=== PATIENT | female | born 1955 | race Caucasian/White ===

== ENCOUNTER → 2016-09-23 | Outpatient (CLI) | payer OTHER | LOC: WI 08:41 | PROVIDERS: ATTEND Internal Medicine | DX: Z12.31 Encounter for screening mammogram for malignant neoplasm of breast (principal); R92.0 Mammographic microcalcification found on diagnostic imaging of breast | CPT/HCPCS: 77063; G0202; 77067 ==

== ENCOUNTER → 2016-09-29 | Outpatient (CLI) | payer OTHER | LOC: WI 10:05 | PROVIDERS: ATTEND Internal Medicine | DX: R92.2 Inconclusive mammogram (principal) | CPT/HCPCS: G0204-52 ==

== ENCOUNTER → 2016-10-09 | Day surgery (SDC) | payer OTHER ==
[~2016-10-09] MED LIST: LIDOCAINE 1%/EPINEPHRINE INJ 20 ML VIAL ONE
== END ==
LOC: RAD 08:57
PROVIDERS: ATTEND Internal Medicine
PROC: 0HBU3ZX Excision of Left Breast, Percutaneous Approach, Diagnostic (ICD-10-PCS; principal; 2016-10-09)
DX: N60.21 Fibroadenosis of right breast (principal); R92.0 Mammographic microcalcification found on diagnostic imaging of breast; E03.9 Hypothyroidism, unspecified; I10 Essential (primary) hypertension; E78.5 Hyperlipidemia, unspecified; G40.909 Epilepsy, unspecified, not intractable, without status epilepticus; Z88.5 Allergy status to narcotic agent; Z87.820 Personal history of traumatic brain injury
CPT/HCPCS: 88342 ×2; 88341 ×2; 88305 ×2; 19081; J3490

== ENCOUNTER 2016-11-06 16:50 | Emergency (ER) | payer OTHER ==
[2016-11-06] MEDS ORDERED: CYCLOBENZAPRINE HCL 10 MG TABLET PO ONE (17:49)
[2016-11-06] MEDS ORDERED: OXYCODONE-ACETAMINOPHEN 5-325 MG TABLET PO ONE (17:49)
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
[2016-11-06 18:19] VITALS: BP 154/96
== END 2016-11-06 18:18 | disposition home or self-care (01) ==
LOC: ER 16:50
DX: M54.5 Low back pain (principal); V43.52XA Car driver injured in collision with other type car in traffic accident, initial encounter; I10 Essential (primary) hypertension; Z88.5 Allergy status to narcotic agent; Z87.891 Personal history of nicotine dependence; Z85.3 Personal history of malignant neoplasm of breast
CPT/HCPCS: 99283

== ENCOUNTER → 2017-09-24 | Outpatient (CLI) | payer OTHER ==
--- NOTE | 2017-09-25 09:07 | WOMENS IMAGING REPORT ---
EXAM DESCRIPTION: 3D SCREENING MAMMO BILAT COMPLETED DATE/TIME: 09/24/2017 12:55 pm REASON FOR STUDY: SCREENING MAMMO Z12.31 ENCNTR SCREEN MAMMOGRAM FOR MALIGNANT NEOPLASM OF LIZ COMPARISON: 2012 to 2016 TECHNIQUE: Standard craniocaudal and mediolateral oblique views of each breast recorded using digita l acquisition and breast tomosynthesis. LIMITATIONS: None. FINDINGS: No masses, calcifications or architectural distortion. No areas of suspicion. Read with the assistance of CAD. .[facility] - R2 Cenova Version 1.3 .[facility] - R2 Cenova Version 1.3 .[facility] - R2 Cenova Version 2.4 .[facility] [place] [place] - R2 Cenova Version 2.4 .[facility] - R2 [employer] Version 9.2 IMPRESSION: NORMAL MAMMOGRAM. BIRADS 1. BREAST DENSITY: b. There are scattered areas of fibroglandular density. BIRAD: 1 NEGATIVE RECOMMENDATION: ROUTINE SCREENING COMMENT: The patient has been notified of the results by letter per SA requirements. Additional no tification policies are in place for contacting patient with suspicious or incomplete findings. Quality ID #[id number]: The [employer] recommends an annual screening mammogram for women aged 40 years or over. This facility utilizes a reminder system to ensure that all patients receive reminder letters, and/or direct phone calls for appointments. This includes reminders for routine scr eening mammograms, diagnostic mammograms, or other Breast Imaging Interventions when appropriate. Th is patient will be placed in the appropriate reminder system. The [employer] (ACR) has developed recommendations for screening MRI of the breast s in certain patient populations, to be used in conjunction with mammography. Breast MRI surveillanc e may be appropriate for women with more than 20% lifetime risk of developing breast cancer as deter mined by genetic testing, significant family history of the disease, or history of mantle radiation f or Hodgkins Disease. ACR Practice Guidelines 2008. DBT Technology DBT is a type of tomographic mammography. With conventional mammography, overlapping breast tissue ma y make lesions difficult to detect, even with good compression. DBT uses an x-ray tube that rotates a round the breast, taking images at different angles. These images are then combined to create thin sl ices of the breast that the radiologist can view as a 3D reconstruction. The Noah unit can perform full-field digital mammograms (2D imaging); or DBT (3D imaging); or both, in a combination mode that quickly performs both the mammogram and the tomosynthesis scan while the breast is still compressed. PQRS 6045F: Fluoroscopic imaging is not utilized for breast tomosynthesis. TECHNICAL DOCUMENTATION: FINDING NUMBER: (1) ASSESSMENT: (1) JOB ID: [id number] [employer]- All Rights Reserved Reading location - IP/workstation name: [email or web address]
== END ==
LOC: WI 12:35
PROVIDERS: ATTEND Internal Medicine
DX: Z12.31 Encounter for screening mammogram for malignant neoplasm of breast (principal)
CPT/HCPCS: 77063; 77067

== ENCOUNTER 2017-12-01 21:59 | Inpatient (IN) | payer OTHER ==
[2017-12-02] MEDS ORDERED: AMPICILLIN SOD/SULBACTAM 3 GM VIAL IV ONE (00:53)
--- NOTE | 2017-12-02 01:02 | ER Document Report ---
ED Extremity Problem, Upper - General Chief Complaint: Hand Swelling Stated Complaint: POSSIBLE CAT SCRATCH Time Seen by Provider: 12/02/17 00:23 Notes: Patient is a 62-year-old female who comes in complaining of redness and swelling to her left upper extremity. Patient is right-handed. Patient was trying to introduce her cat to a dog. The cat became upset and bit and scratched the patient. Patient was seen at urgent care where x-rays were done on her bilateral arms with no evidence of foreign body. Patient was given a dose of Rocephin and also started on Augmentin. Despite 3 doses of Augmentin, the patient is having streaking redness of her left upper extremity. She has a history of hypertension, high cholesterol, prediabetic, and hypothyroidism. Denies any other injuries anywhere else. Cat is up-to-date on vaccinations. Patient was given tetanus when she was seen in urgent care. TRAVEL OUTSIDE OF THE [place] IN LAST 30 DAYS: No - HPI Patient complains to provider of: Pain, Swelling Onset: Other Context: Animal bite - Related Data Allergies/Adverse Reactions: acetaminophen [From Vicodin] Allergy (Severe, Verified 11/06/16 17:10) rash hydrocodone bitartrate [From Vicodin] Allergy (Verified 11/06/16 17:10) Past Medical History - Social History Smoking Status: Unknown if Ever Smoked Family History: Arthritis, CAD, CVA, DM, Hyperlipidemia, Hypertension, Malignancy, Thyroid Disfunction Patient has suicidal ideation: No Patient has homicidal ideation: No - Past Medical History Cardiac Medical History: Reports: Hx Hypercholesterolemia, Hx Hypertension - on meds Denies: Hx Coronary Artery Disease, Hx Heart Attack Pulmonary Medical History: Reports: Hx Pneumonia - hx of Denies: Hx Asthma, Hx Bronchitis, Hx COPD Neurological Medical History: Reports: Hx Seizures - 2010 r/t thyroid//no meds. Denies: Hx Cerebrovascular Accident Endocrine Medical History: Reports: Hx Hypothyroidism Renal/ Medical History: Denies: Hx Peritoneal Dialysis Malignancy Medical History: Reports: Hx Breast Cancer - left Ductal hyperplasia Musculoskeltal Medical History: Reports Hx Arthritis - mild, Reports Hx Musculoskeletal Trauma Psychiatric Medical History: Reports: Hx Anxiety, Hx Dementia Traumatic Medical History: Reports: Hx Traumatic Brain Injury Past Surgical History: Reports: Hx Breast Surgery - Lefttumor removed - Immunizations Immunizations up to date: Yes Hx Diphtheria, Pertussis, Tetanus Vaccination: Yes Hx Pneumococcal Vaccination: 03/31/04 Review of Systems - Review of Systems Constitutional: No symptoms reported EENT: No symptoms reported Cardiovascular: No symptoms reported Respiratory: No symptoms reported Gastrointestinal: No symptoms reported Genitourinary: No symptoms reported Female Genitourinary: No symptoms reported Musculoskeletal: See HPI Skin: See HPI Hematologic/Lymphatic: No symptoms reported Neurological/Psychological: No symptoms reported Physical Exam - Vital signs Vitals: Temp Pulse Resp BP Pulse Ox 97.9 F 104 H 20 139/79 H 93 12/01/17 22:59 12/01/17 22:59 12/01/17 22:59 12/01/17 22:59 12/01/17 22:59 Interpretation: Normal - General General appearance: Appears well, Alert - HEENT Head: Normocephalic, Atraumatic Eyes: Normal Pupils: PERRL - Respiratory Respiratory status: No respiratory distress Chest status: Nontender Breath sounds: Normal Chest palpation: Normal - Cardiovascular Rhythm: Regular Heart sounds: Normal auscultation Murmur: No - Abdominal Inspection: Normal Distension: No distension Bowel sounds: Normal Tenderness: Nontender Organomegaly: No organomegaly - Back Back: Normal, Nontender - Extremities General upper extremity: Normal inspection, Tender, Edema, Normal ROM, Normal temperature. No: Normal color General lower extremity: Normal inspection, Nontender, Normal color, Normal ROM , Normal temperature, Normal weight bearing. No: Sammy's sign Shoulder: Normal Arm: Normal Elbow: Normal Forearm: Other - Patient with streaking erythema from her left wrist onto her dorsal hand and to her mid forearm. Area has been marked. Hip: Normal Thigh: Normal Knee: Normal Calf: Normal Ankle: Normal Foot: Normal - Neurological Neuro grossly intact: Yes Cognition: Normal Orientation: AAOx4 Jann Coma Scale Eye Opening: Spontaneous Jann Coma Scale Verbal: Oriented [place] Coma Scale Motor: Obeys Commands Jann Coma Scale Total: 15 Speech: Normal Motor strength normal: LUE, RUE, LLE, RLE Sensory: Normal - Psychological Associated symptoms: Normal affect, Normal mood - Skin Skin Temperature: Warm Skin Moisture: Dry Skin Color: Normal Skin irregularity: Erythema - Left upper extremity from hand to mid forearm Course - Re-evaluation Re-evalutation: Patient is a 62-year-old female who was bitten and scratched by her cat recently. Despite Augmentin, the patient is having increasing erythema and edema of her left upper extremity. She will be started on Unasyn and admitted for further evaluation and management of cellulitis. Tetanus was updated in urgent care. No palpable lymph nodes or lymph node tenderness to palpation. Unlikely cat scratch fever. Patient will be admitted to the hospitalist service. Agrees with this plan. Stable time of admission. - Vital Signs Vital signs: Temp Pulse Resp BP Pulse Ox 97.9 F 104 H 20 139/79 H 93 12/01/17 22:59 12/01/17 22:59 12/01/17 22:59 12/01/17 22:59 12/01/17 22:59 - Laboratory Result Diagrams: 12/02/17 02:15 12/02/17 02:15 Discharge - Discharge Clinical Impression: Cellulitis of left upper extremity Condition: Stable Disposition: ADMITTED OBSERVATION Admitting Provider: Hospitalist - [facility] Unit Admitted: Medical Floor
[2017-12-02] MEDS ORDERED: ONDANSETRON HCL INJ/PF 4 MG/2 ML SDV IV PRN (01:11)
--- NOTE | 2017-12-02 01:26 | PDOC H&P ---
History of Present Illness Admission Date/PCP: 12/02/17 01:13 MICKEY JANE MD History of Present Illness: ROBSON JOSEPH is a 62 year old female patient with past medical history of hypertension, hyperlipidemia, diabetes mellitus, hypothyroidism and anxiety disorder presents with chief complaint of left arm swelling, pain, tenderness and erythema. About 3 days ago patient was bit by her cut, same patient started to develop the above-mentioned complaints. Patient's first visit to urgent care where she was given tetanus and Augmentin. Despite taking the Augmentin and patient's conditions get worse so come to ER for help. Patient denies fever, cough, chest pain, palpitation or diaphoresis. No urinary complaints or GI complaints. No headache dizziness or blurry vision. Past Medical History Cardiac Medical History: Reports: Hyperlipidema, Hypertension - on meds Denies: Coronary Artery Disease, Myocardial Infarction Pulmonary Medical History: Reports: Pneumonia - hx of Denies: Asthma, Bronchitis, Chronic Obstructive Pulmonary Disease (COPD) Neurological Medical History: Reports: Seizures - 2010 r/t thyroid//no meds Endocrine Medical History: Reports: Hypothyroidism Malignancy Medical History: Reports: Breast Cancer - left Ductal hyperplasia Musculoskeltal Medical History: Reports: Arthritis - mild Psychiatric Medical History: Reports: Dementia Traumatic Medical History: Reports: Traumatic Brain Injury Hematology: Denies: Anemia Past Surgical History Past Surgical History: Reports: Other - Lumpectomy Social History Smoking Status: Never Smoker Frequency of Alcohol Use: None Hx Recreational Drug Use: No Drugs: None - Advance Directive Resuscitation Status: Full Code Family History Family History: Arthritis, CAD, CVA, DM, Hyperlipidemia, Hypertension, Malignancy, Thyroid Disfunction Parental Family History Reviewed: Yes Children Family History Reviewed: Yes Sibling(s) Family History Reviewed.: Yes Medication/Allergy Home Medications: Alprazolam [Xanax 0.25 mg Tablet] 06/27/13 Atorvastatin Calcium [Lipitor 40 mg Tablet] 06/27/13 Ergocalciferol (Vitamin D2) [Vitamin D2] 2,000 unit PO 06/27/13 Levothyroxine Sodium 50 mcg PO 06/27/13 Losartan/Hydrochlorothiazide [Hyzaar 50-12.5 Tablet] 1 each PO 06/27/13 [place]-3 Fatty Acids/Fish Oil [Fish Oil 1,000 mg Capsule] 06/27/13 Oxycodone HCl/Acetaminophen [Percocet 5-325 mg Tablet] 06/27/13 Paroxetine HCl [Paxil] 10 mg PO 06/27/13 Pravastatin Sodium [Pravachol] 10 mg PO 06/27/13 Vitamin B Complex 1 each PO 06/27/13 Ondansetron [Zofran Odt 4 mg Tablet] 1 - 2 tab PO Q4H #10 tab.rapdis 09/12/13 Oxycodone HCl/Acetaminophen [Percocet 5-325 mg Tablet] 1 - 2 tab PO ASDIR PRN # 25 tablet 09/12/13 Methocarbamol [Robaxin 500 mg Tablet] 500 mg PO TID #14 tablet 07/06/15 Oxycodone HCl/Acetaminophen [Percocet 5-325 mg Tablet] 1 tab PO Q6HP PRN #10 tablet 07/06/15 Butalb/Acetaminophen/Caffeine [Fioricet (50-325-40 mg) Tablet] 1 - 2 tab PO Q4H PRN #30 each 07/25/15 Methocarbamol 500 mg PO QIDP PRN #30 tablet 07/25/15 Cyclobenzaprine HCl [Flexeril 10 mg Tablet] 10 mg PO TIDP PRN #15 tab 11/06/16 Oxycodone HCl/Acetaminophen [Percocet 5-325 mg Tablet] 1 tab PO Q6HP PRN #7 tablet 11/06/16 Allergies/Adverse Reactions: acetaminophen [From Vicodin] Allergy (Severe, Verified 11/06/16 17:10) rash hydrocodone bitartrate [From Vicodin] Allergy (Verified 11/06/16 17:10) Review of Systems Constitutional: PRESENT: as per HPI Eyes: PRESENT: as per HPI Ears: PRESENT: as per HPI Cardiovascular: PRESENT: as per HPI Respiratory: PRESENT: as per HPI Gastrointestinal: PRESENT: as per HPI Integumentary: PRESENT: as per HPI Psychiatric: PRESENT: anxiety Physical Exam Vital Signs: Temp Pulse Resp BP Pulse Ox 97.9 F 104 H 20 139/79 H 93 12/01/17 22:59 12/01/17 22:59 12/01/17 22:59 12/01/17 22:59 12/01/17 22:59 General appearance: PRESENT: no acute distress, well-developed, well-nourished Head exam: PRESENT: atraumatic, normocephalic Ear exam: PRESENT: normal external ear exam Neck exam: ABSENT: carotid bruit, JVD, lymphadenopathy, thyromegaly Respiratory exam: PRESENT: clear to auscultation leonel. ABSENT: rales, rhonchi, wheezes Cardiovascular exam: PRESENT: RRR. ABSENT: diastolic murmur, rubs, systolic murmur GI/Abdominal exam: PRESENT: normal bowel sounds, soft. ABSENT: distended, guarding, mass, organolmegaly, rebound, tenderness Extremities exam: PRESENT: tenderness - Tender erythematous swelling of the left arm, other Assessment & Plan - Diagnosis (1) Cellulitis of arm, left Is this a current diagnosis for this admission?: Yes Plan: Patient has been started on Unasyn. (2) Hypertension Qualifiers: Hypertension type: essential hypertension Qualified Code(s): I10 - Essential (primary) hypertension Is this a current diagnosis for this admission?: Yes Plan: Continue home medication (3) Hyperlipidemia Qualifiers: Hyperlipidemia type: unspecified Qualified Code(s): E78.5 - Hyperlipidemia , unspecified Is this a current diagnosis for this admission?: Yes Plan: Continue home medication (4) Type 2 diabetes mellitus Is this a current diagnosis for this admission?: Yes Plan: Put her on sliding scale (5) Hypothyroidism (acquired) Is this a current diagnosis for this admission?: Yes Plan: Continue home Synthroid. - Time Time Spent: 30 to 50 Minutes - Inpatient Certification Medical Necessity: Need for IV Antibiotics
[2017-12-02] MEDS ORDERED: DEXTROSE 50%-WATER 25 GM/50 ML DISP.SYRIN IV PRN ×2 (01:27)
[2017-12-02] MEDS ORDERED: GLUCAGON,HUMAN RECOMB 1 MG INJ IM PRN (01:27)
[2017-12-02] MEDS ORDERED: INSULIN LISPRO 100 UNIT/ML 3 ML VIAL SUBCUT PRN (01:27)
[2017-12-02] MEDS ORDERED: DEXTROSE 40% GEL 15 GM TUBE PO PRN ×2 (01:27)
[2017-12-02] MEDS ORDERED: AMPICILLIN SOD/SULBACTAM 3 GM VIAL IV PRN (02:13)
[2017-12-02 02:35] LABS: ABSOLUTE BASOPHILS # (AUTO) 0.3 10^3/uL (0.0-0.2); ABSOLUTE EOSINOPHILS # (AUTO) 0.3 10^3/uL (0.0-0.6); ABSOLUTE LYMPHOCYTES (AUTO) 4.2 10^3/uL (0.5-4.7); ABSOLUTE MONOCYTES (AUTO) 0.9 10^3/uL (0.1-1.4); ABSOLUTE NEUT (AUTO) 11.6 10^3/uL (1.7-8.2); BASOPHILS % (AUTO) 1.6 % (0-2); EOSINOPHILS % (AUTO) 1.8 % (0-6); HEMATOCRIT 34.9 % (36.0-47.0); HEMOGLOBIN 12.1 g/dL (12.0-15.5); LYMPHOCYTES % (AUTO) 24.3 % (13-45); MEAN CORPUSCULAR HEMOGLOBIN 29.1 pg (27.0-33.4); MEAN CORPUSCULAR HGB CONC 34.7 g/dL (32.0-36.0); MEAN CORPUSCULAR VOLUME 84 fl (80-97); MONOCYTES % (AUTO) 5.5 % (3-13); PLATELET COUNT 325 10^3/uL (150-450); RED BLOOD COUNT 4.16 10^6/uL (3.72-5.28); RED CELL DISTRIBUTION WIDTH 13.1 % (11.5-14.0); SEGMENTED NEUTROPHILS % (AUTO) 66.8 % (42-78); TOTAL CELLS COUNTED % (AUTO) 100 %; WHITE BLOOD COUNT 17.3 10^3/uL (4.0-10.5)
[2017-12-02 03:14] LABS: ALANINE AMINOTRANSFERASE 22 U/L (9-52); ALBUMIN 3.5 g/dL (3.5-5.0); ALKALINE PHOSPHATASE 72 U/L (38-126); ANION GAP 11 (5-19); ASPARTATE AMINO TRANSFERASE 15 U/L (14-36); BILIRUBIN,DIRECT 0.3 mg/dL (0.0-0.4); BILIRUBIN,TOTAL 0.6 mg/dL (0.2-1.3); BLOOD UREA NITROGEN 11 mg/dL (7-20); CALCIUM 9.1 mg/dL (8.4-10.2); CARBON DIOXIDE 32 mmol/L (22-30); CHLORIDE 100 mmol/L (98-107); GLUCOSE 95 mg/dL (75-110); POTASSIUM 3.1 mmol/L (3.6-5.0); SODIUM 142.9 mmol/L (137-145); TOTAL PROTEIN 6.2 g/dL (6.3-8.2)
[2017-12-02] MEDS: AMPICILLIN SODIUM/SULBACTAM NA 3 GM in NORMAL SALINE 100 ML IV SCH ×3 (06:33→18:08)
[2017-12-02] MEDS: LEVOTHYROXINE SODIUM 0.05 MG TABLET PO SCH (06:33)
[2017-12-02] MEDS: FAMOTIDINE 20 MG TABLET PO SCH ×2 (10:31→22:57)
[2017-12-02] MEDS: ENOXAPARIN SODIUM INJ 40 MG/0.4 ML DISP.SYRIN SUBCUT SCH (10:31)
[2017-12-03] MEDS: LEVOTHYROXINE SODIUM 0.05 MG TABLET PO SCH (05:46)
[2017-12-03] MEDS: AMPICILLIN SODIUM/SULBACTAM NA 3 GM in NORMAL SALINE 100 ML IV SCH ×5 (05:49→18:28)
[2017-12-03 06:31] LABS: ABSOLUTE BASOPHILS # (AUTO) 0.1 10^3/uL (0.0-0.2); ABSOLUTE EOSINOPHILS # (AUTO) 0.4 10^3/uL (0.0-0.6); ABSOLUTE LYMPHOCYTES (AUTO) 3.4 10^3/uL (0.5-4.7); ABSOLUTE MONOCYTES (AUTO) 0.7 10^3/uL (0.1-1.4); ABSOLUTE NEUT (AUTO) 6.1 10^3/uL (1.7-8.2); BASOPHILS % (AUTO) 0.8 % (0-2); EOSINOPHILS % (AUTO) 3.5 % (0-6); HEMATOCRIT 33.6 % (36.0-47.0); HEMOGLOBIN 11.8 g/dL (12.0-15.5); LYMPHOCYTES % (AUTO) 31.7 % (13-45); MEAN CORPUSCULAR HEMOGLOBIN 29.5 pg (27.0-33.4); MEAN CORPUSCULAR VOLUME 84 fl (80-97); MONOCYTES % (AUTO) 6.4 % (3-13); PLATELET COUNT 315 10^3/uL (150-450); RED BLOOD COUNT 3.99 10^6/uL (3.72-5.28); RED CELL DISTRIBUTION WIDTH 13.1 % (11.5-14.0); SEGMENTED NEUTROPHILS % (AUTO) 57.6 % (42-78); TOTAL CELLS COUNTED % (AUTO) 100 %; WHITE BLOOD COUNT 10.7 10^3/uL (4.0-10.5)
[2017-12-03 06:49] LABS: ANION GAP 9 (5-19); BLOOD UREA NITROGEN 10 mg/dL (7-20); CALCIUM 8.8 mg/dL (8.4-10.2); CARBON DIOXIDE 34 mmol/L (22-30); CHLORIDE 104 mmol/L (98-107); GLUCOSE 105 mg/dL (75-110); POTASSIUM 3.9 mmol/L (3.6-5.0)
[2017-12-03] MEDS: ENOXAPARIN SODIUM INJ 40 MG/0.4 ML DISP.SYRIN SUBCUT SCH (09:32)
[2017-12-03] MEDS: FAMOTIDINE 20 MG TABLET PO SCH ×2 (09:32→21:56)
--- NOTE | 2017-12-03 19:05 | PDOC PROGRESS REPORT ---
Subjective Progress Note for:: 12/03/17 Subjective:: ROBSON SOMMER is a 62 y.o. female with PMH of hypertension, hyperlipidemia, diabetes mellitus, hypothyroidism and anxiety disorder. She presented 12/02/2017 with chief complaint of left arm swelling, pain, tenderness and erythema. She reports about 3 days ago she was bit by her cat. The patient started to develop the above-mentioned complaints and first went to urgent care where she was given tetanus and Augmentin. The patient states that the swelling and erythema continued to get worse despite treatment. Patient seen this morning on rounds, the swelling in her L hand and wrist has decreased significantly. Very mild erythema. The patient still having difficulty with fine motor movement in L hand due to swelling. Denies fever or chills. Patient is nontoxic appearing. Reason For Visit: CELLULITIS OF LEFT ARM, FAILED OUTPATIENT TREATMEN Physical Exam Vital Signs: Temp Pulse Resp BP Pulse Ox 98.0 F 77 17 118/71 98 12/03/17 08:29 12/03/17 08:29 12/03/17 08:29 12/03/17 08:29 12/03/17 08:29 Intake & Output 12/02/17 12/03/17 12/04/17 06:59 06:59 06:59 Weight 85 kg General appearance: PRESENT: no acute distress Eye exam: PRESENT: conjunctiva pink, PERRLA Mouth exam: PRESENT: moist Neck exam: PRESENT: full ROM Respiratory exam: PRESENT: symmetrical, unlabored Cardiovascular exam: PRESENT: +S1, +S2 Pulses: PRESENT: normal radial pulses GI/Abdominal exam: PRESENT: normal bowel sounds, soft. ABSENT: tenderness Rectal exam: PRESENT: deferred Extremities exam: PRESENT: full ROM Musculoskeletal exam: PRESENT: ambulatory, full ROM Neurological exam: PRESENT: alert, awake, oriented to person, oriented to place , oriented to time, oriented to situation Skin exam: PRESENT: dry, warm, other - animal bite to dorsal aspect of L arm and L wrist Results Laboratory Results: 12/03/17 06:04 12/03/17 06:04 12/03/17 12/03/17 12/03/17 06:04 06:04 06:04 WBC 10.7 H RBC 3.99 Hgb 11.8 L Hct 33.6 L MCV 84 MCH 29.5 MCHC 35.0 RDW 13.1 Plt Count 315 Seg Neutrophils % 57.6 Lymphocytes % 31.7 Monocytes % 6.4 Eosinophils % 3.5 Basophils % 0.8 Absolute Neutrophils 6.1 Absolute Lymphocytes 3.4 Absolute Monocytes 0.7 Absolute Eosinophils 0.4 Absolute Basophils 0.1 Sodium 147.0 H Potassium 3.9 Chloride 104 Carbon Dioxide 34 H Anion Gap 9 BUN 10 Creatinine 0.57 Est GFR ( Amer) > 60 Est GFR (Non-Af Amer) > 60 Glucose 105 Calcium 8.8 TSH 1.87 Status: Imported from PACS Assessment & Plan - Diagnosis (1) Cellulitis of arm, left Is this a current diagnosis for this admission?: Yes Plan: Secondary to cat bite Failed p.o. Augmentin treatment Left forearm, wrist, hand and 5 fingers look much better today, swelling has greatly decreased. Blood cultures pending. Continue IV Unasyn. Plan for discharge home tomorrow on p.o. antibiotics (2) Hypertension Qualifiers: Hypertension type: essential hypertension Qualified Code(s): I10 - Essential (primary) hypertension Is this a current diagnosis for this admission?: Yes Plan: Patient endorses history of hypertension. She has remained normotensive while inpatient at [facility] (3) Type 2 diabetes mellitus Is this a current diagnosis for this admission?: Yes Plan: Patient endorses history of diabetes. Accu-Cheks before meals at bedtime Humalog sliding scale insulin - Time Time Spent with patient: 15-24 minutes Medications reviewed and adjusted accordingly: Yes Anticipated discharge: Home Within: within 24 hours - Inpatient Certification Based on my medical assessment, after consideration of the patient's comorbidities, presenting symptoms, or acuity I expect that the services needed warrant INPATIENT care.: Yes I certify that my determination is in accordance with my understanding of Medicare's requirements for reasonable and necessary INPATIENT services [42 CFR 412.3e].: Yes Medical Necessity: Need for IV Antibiotics
[2017-12-04] MEDS: AMPICILLIN SODIUM/SULBACTAM NA 3 GM in NORMAL SALINE 100 ML IV SCH ×4 (05:20→12:48)
[2017-12-04] MEDS: LEVOTHYROXINE SODIUM 0.05 MG TABLET PO SCH (05:20)
[2017-12-04] MEDS ORDERED: IBUPROFEN 800 MG TABLET PO PRN (09:08)
[2017-12-04] MEDS: ENOXAPARIN SODIUM INJ 40 MG/0.4 ML DISP.SYRIN SUBCUT SCH (09:36)
[2017-12-04] MEDS: FAMOTIDINE 20 MG TABLET PO SCH (09:36)
[2017-12-04] MEDS ORDERED: CLINDAMYCIN HCL 150 MG CAPSULE PO SCH ×2 (14:00→18:00)
[2017-12-04 15:28] VITALS: BP 124/67
[2017-12-04] MEDS ORDERED: CLINDAMYCIN HCL 150 MG CAPSULE PO ONE (15:45)
[2017-12-04] MEDS ORDERED: DOXYCYCLINE HYCLATE 100 MG TABLET PO ONE (16:00)
[2017-12-04] MEDS ORDERED: DOXYCYCLINE HYCLATE 100 MG TABLET PO SCH (18:00)
--- NOTE | 2017-12-05 06:40 | PDOC DISCHARGE SUMMARY ---
General - Admit/Disc Date/PCP Admission Date/Primary Care Provider: 12/02/17 01:13 MICKEY JANE MD Discharge Date: 12/04/17 - Discharge Diagnosis (1) Cellulitis of arm, left Is this a current diagnosis for this admission?: Yes (2) Hypertension Is this a current diagnosis for this admission?: Yes (3) Type 2 diabetes mellitus Is this a current diagnosis for this admission?: Yes - Additional Information Resuscitation Status: Full Code Discharge Diet: As Tolerated Discharge Activity: Activity As Tolerated Prescriptions: Doxycycline Hyclate [Vibramycin 100 mg Tablet] 100 mg PO Q12 #28 tablet Ibuprofen [Motrin 800 mg Tablet] 800 mg PO Q6HP PRN #30 tablet PRN Reason: Home Medications: Alprazolam [Xanax 0.25 mg Tablet] 0.5 mg PO TID 06/27/13 Atorvastatin Calcium [Lipitor 40 mg Tablet] 40 mg PO QPM 06/27/13 Levothyroxine Sodium 50 mcg PO DAILY 06/27/13 Buspirone HCl [Buspar 10 mg Tablet] 10 mg PO BID 12/02/17 Cholecalciferol (Vitamin D3) [Vitamin D3 1000 Unit Tablet] 1,000 unit PO DAILY 12/02/17 Losartan/Hydrochlorothiazide [Losartan-Hctz 100-25 mg Tab] 1 tab PO DAILY Metformin HCl [Glucophage 500 mg Tablet] 500 mg PO BID 12/02/17 Tamoxifen Citrate 20 mg PO DAILY 12/02/17 Venlafaxine HCl [Effexor Xr] 150 mg PO BID 12/02/17 Doxycycline Hyclate [Vibramycin 100 mg Tablet] 100 mg PO Q12 #28 tablet Ibuprofen [Motrin 800 mg Tablet] 800 mg PO Q6HP PRN #30 tablet 12/04/17 History of Present Illness Patient complains of: cat bite. hand swelling History of Present Illness: ROBSON JOSEPH is a 62 year old female patient with past medical history of hypertension, hyperlipidemia, diabetes mellitus, hypothyroidism and anxiety disorder presents with chief complaint of left arm swelling, pain, tenderness and erythema. About 3 days ago patient was bit by her cut, same patient started to develop the above-mentioned complaints. Patient's first visit to urgent care where she was given tetanus and Augmentin. Despite taking the Augmentin and patient's conditions get worse so come to ER for help. Patient denies fever, cough, chest pain, palpitation or diaphoresis. No urinary complaints or GI complaints. No headache dizziness or blurry vision. Hospital Course Hospital Course: 62-year-old female admitted to [facility] for cellulitis of the left hand wrist and forearm secondary to a cat bite. Patient was originally seen at an urgent care and offered p.o. Augmentin for treatment, however her symptoms of swelling and pain continued to get worse. Admitted to [facility] hospitalist service for IV antibiotic therapy. Admitted to medical unit, initiated IV Unasyn. Initial WBC 17.1. Over the course of 48 hours her symptoms have greatly resolved. Erythema and edema of the dorsal aspect of the left hand and wrist significantly decreased, a small area of erythema remained around the puncture site. The patient remained afebrile and nontoxic throughout her hospital stay. Blood cultures negative. Leukocytosis resolved. After 2 days in the hospital, the patient was successfully discharged. She was sent home with prescriptions for doxycycline and clindamycin, both of which she was instructed to take for 14 days. The patient was offered information regarding local primary care physicians as she reports she typically goes to her [facility] for all of her medical care. The patient was given instructions to keep her wound clean and dry. The remainder of her discharge instructions were thoroughly explained, the patient stated full understanding. Physical Exam Vital Signs: Temp Pulse Resp BP Pulse Ox 97.6 F 78 18 124/67 98 12/04/17 15:26 12/04/17 15:26 12/04/17 15:26 12/04/17 15:26 12/04/17 15:26 Intake & Output 12/03/17 12/04/17 12/05/17 06:59 06:59 06:59 Intake Total 900 700 Balance 900 700 Weight 85 kg 86.5 kg Results Laboratory Results: 12/03/17 06:04 12/03/17 06:04 Status: Imported from PACS Qualifiers - * PATIENT BEING DISCHARGED WITH ANY OF THE FOLLOWING DIAGNOSIS: No Plan Discharge Plan: Discharge home with 2 weeks of oral antibiotics. Provided contact information for PMD in order for patient to establish primary care. Time Spent: Less than 30 Minutes
== END 2017-12-04 16:55 | disposition home or self-care (01) | DRG 603 ==
LOC: ER 21:59 → EH 12-02 01:13 → 2S 12-02 10:38
PROVIDERS: ADMIT Internal Medicine; ATTEND Internal Medicine
DX: L03.114 Cellulitis of left upper limb (principal); I10 Essential (primary) hypertension; E11.9 Type 2 diabetes mellitus without complications; E78.5 Hyperlipidemia, unspecified; F41.9 Anxiety disorder, unspecified; E03.9 Hypothyroidism, unspecified; W55.01XA Bitten by cat, initial encounter; Z79.899 Other long term (current) drug therapy; Z79.84 Long term (current) use of oral hypoglycemic drugs; Z83.3 Family history of diabetes mellitus; Z82.49 Family history of ischemic heart disease and other diseases of the circulatory system; Z82.3 Family history of stroke; Z82.61 Family history of arthritis; Z80.9 Family history of malignant neoplasm, unspecified; Z88.6 Allergy status to analgesic agent
CPT/HCPCS: 36415; 80048; 80053; 83036; 84443; 85025; 87040; 99284; J0295; J1650

== ENCOUNTER → 2018-09-22 | Outpatient (CLI) | payer OTHER ==
[2018-09-22 18:20] LABS: FREE T4 (FREE THYROXINE) 1.8 ng/dL (0.78-2.19)
[2018-09-22 18:34] LABS: THYROID STIMULATING HORMONE 2.27 uIU/mL (0.47-4.68)
== END ==
LOC: OD 16:08
PROVIDERS: ATTEND Psychiatry & Neurology Psychiatry
DX: F33.1 Major depressive disorder, recurrent, moderate (principal)
CPT/HCPCS: 36415; 84439; 84443

== ENCOUNTER → 2018-09-28 | Outpatient (CLI) | payer OTHER ==
--- NOTE | 2018-09-28 12:15 | WOMENS IMAGING REPORT ---
EXAM DESCRIPTION: 3D SCREENING MAMMO BILAT COMPLETED DATE/TIME: 09/28/2018 8:47 am REASON FOR STUDY: Z12.31 ROUTINE 3D BILATERAL SCREENING Z12.31 ENCNTR SCREEN MAMMOGRAM FOR MALIGNAN T NEOPLASM OF LIZ COMPARISON: Multiple since 2010 TECHNIQUE: Standard craniocaudal and mediolateral oblique views of each breast recorded using digita l acquisition and breast tomosynthesis. LIMITATIONS: None. FINDINGS: Findings present which are benign by mammographic criteria. No suspicious masses, calcific ations or architectural distortion. Pertinent benign findings: Old bilateral breast biopsies at the deep central 12 o'clock position, wit h clip on the right, and focal fat necrosis on the left. Read with the assistance of CAD. .[facility] - R2 Cenova Version 1.3 .[facility] - R2 Cenova Version 2.1 .[facility] - R2 Cenova Version 2.4 .[facility] [place] - R2 Cenova Version 2.4 .[facility] - R2 Gag Writer Version 9.2 Benign mammographic findings may include one or more of the following: Smooth masses, popcorn/rim/coa rse calcifications, asymmetries, post-procedure changes, and lesions with long-standing stability. IMPRESSION: BENIGN MAMMOGRAPHIC FINDINGS. BIRADS 2 BREAST DENSITY: b. There are scattered areas of fibroglandular density. BIRAD: 2 BENIGN FINDING(S) RECOMMENDATION: ROUTINE SCREENING COMMENT: The patient has been notified of the results by letter per SA requirements. Additional no tification policies are in place for contacting patient with suspicious or incomplete findings. Quality ID #225: The [employer] recommends an annual screening mammogram for women aged 40 years or over. This facility utilizes a reminder system to ensure that all patients receive reminder letters, and/or direct phone calls for appointments. This includes reminders for routine scr eening mammograms, diagnostic mammograms, or other Breast Imaging Interventions when appropriate. Th is patient will be placed in the appropriate reminder system. The [employer] (ACR) has developed recommendations for screening MRI of the breast s in certain patient populations, to be used in conjunction with mammography. Breast MRI surveillanc e may be appropriate for women with more than 20% lifetime risk of developing breast cancer as deter mined by genetic testing, significant family history of the disease, or history of mantle radiation f or Hodgkins Disease. ACR Practice Guidelines 2008. DBT Technology DBT is a type of tomographic mammography. With conventional mammography, overlapping breast tissue ma y make lesions difficult to detect, even with good compression. DBT uses an x-ray tube that rotates a round the breast, taking images at different angles. These images are then combined to create thin sl ices of the breast that the radiologist can view as a 3D reconstruction. The Hologic unit can perform full-field digital mammograms (2D imaging); or DBT (3D imaging); or both, in a combination mode that quickly performs both the mammogram and the tomosynthesis scan while the breast is still compressed. PQRS 6045F: Fluoroscopic imaging is not utilized for breast tomosynthesis. TECHNICAL DOCUMENTATION: FINDING NUMBER: (1) ASSESSMENT: (1) JOB ID: [id number] [employer]- All Rights Reserved Reading location - IP/workstation name: [email or web address]
== END ==
LOC: WI 08:08
PROVIDERS: ATTEND Internal Medicine
DX: Z12.31 Encounter for screening mammogram for malignant neoplasm of breast (principal)
CPT/HCPCS: 77063; 77067

== ENCOUNTER → 2020-06-27 | Outpatient (CLI) | payer OTHER ==
--- NOTE | 2020-06-27 11:50 | WOMENS IMAGING REPORT ---
EXAM DESCRIPTION: 3D SCREENING MAMMO BILAT IMAGES COMPLETED DATE/TIME: 06/27/2020 9:49 am REASON FOR STUDY: ROUTINE SCREENIG MAMMOGRAM Z12.31 Z12.31 ENCNTR SCREEN MAMMOGRAM FOR MALIGNANT NE OPLASM OF LIZ COMPARISON: 10/09/2016, 09/24/2017, 09/28/2018 EXAM PARAMETERS: Standard craniocaudal and mediolateral oblique views of each breast recorded using digital acquisition and breast tomosynthesis. Read with the assistance of CAD. .[facility] - [employer] Education Version 9.2 LIMITATIONS: None. FINDINGS: Findings present which are benign by mammographic criteria. No suspicious masses, calcific ations or architectural distortion. Pertinent benign findings: Right breast biopsies and left breast fat necrosis necrosis each demonstra te long-standing stability. Benign mammographic findings may include one or more of the following: Smooth masses, popcorn/rim/coa rse calcifications, asymmetries, post-procedure changes, and lesions with long-standing stability. IMPRESSION: BENIGN MAMMOGRAPHIC FINDINGS. BIRADS 2 BREAST DENSITY: b. There are scattered areas of fibroglandular density. BIRAD: ASSESSMENT: 2 BENIGN FINDING(S) RECOMMENDATION: ROUTINE SCREENING COMMENT: The patient has been notified of the results by letter per SA requirements. Additional no tification policies are in place for contacting patient with suspicious or incomplete findings. Quality ID #225: The [employer] recommends an annual screening mammogram for women aged 40 years or over. This facility utilizes a reminder system to ensure that all patients receive reminder letters, and/or direct phone calls for appointments. This includes reminders for routine scr eening mammograms, diagnostic mammograms, or other Breast Imaging Interventions when appropriate. Th is patient will be placed in the appropriate reminder system. TECHNICAL DOCUMENTATION: FINDING NUMBER: (1) ASSESSMENT: (1) JOB ID: [id number] [employer]- All Rights Reserved Reading location - IP/workstation name: [email or web address]
== END ==
LOC: WI 09:32
PROVIDERS: ATTEND Obstetrics & Gynecology Gynecology
DX: Z12.31 Encounter for screening mammogram for malignant neoplasm of breast (principal)
CPT/HCPCS: 77063; 77067